=== PATIENT | female | born 2000 | race Hispanic/Latino ===

== ENCOUNTER 2025-07-31 13:52 | Outpatient (CLI) | payer OTHER | END 2025-07-31 13:53 | disposition home or self-care (01) | LOC: ULT 13:52 | PROVIDERS: ATTEND Nurse Practitioner | DX: Z33.1 Pregnant state, incidental (principal); Q62.39 Other obstructive defects of renal pelvis and ureter; Z3A.20 20 weeks gestation of pregnancy | CPT/HCPCS: 76805 ==